=== PATIENT | male | born 1980 | race African-American/Black ===

== ENCOUNTER 2018-10-23 11:34 | Emergency (ER) | payer SELFPAY ==
[~2018-10-23] VITALS: Ht 175.3 cm; Wt 90.9 kg
[2018-10-23 11:37] VITALS: BP 142/93
== END 2018-10-23 13:12 | disposition left against medical advice (07) ==
LOC: EMS 11:35
DX: H57.11 Ocular pain, right eye (principal); Z53.21 Procedure and treatment not carried out due to patient leaving prior to being seen by health care provider